=== PATIENT | female | born 1985 | race Caucasian/White ===

== ENCOUNTER 2017-05-18 18:04 | Emergency (ER) | payer MEDICAID ==
--- NOTE | 2017-05-18 18:06 | ED Physician Chart ---
Chief Complaint/HPI - Patient Information Date Seen:: 05/18/17 Time Seen:: 18:06 Chief Complaint:: pain History of Present Illness:: 31-year-old female complains of acute on chronic, intermittent, moderate, worse with walking, nonradiating, left lateral ankle pain 2 years. Has associated on and off swelling of the left lateral ankle. Also reports some associated numbness to the left foot. Denies chest pain, palpitations, nausea, vomiting, abdominal pain, headache, acute vision changes. Historian:: Patient Review:: Nurse's Note Reviewed Review of Systems - Review of Systems Other: Complete system review otherwise unremarkable except as noted in history of present illness. Past Medical History - Past Medical History Past Medical History: No significant medical hx Family History: None Social History: Non Smoker, No Alcohol, No Drug Use, Other Surgical History: None Psychiatricy History: None Medication: None Family Medical History - Family Member Father Ethnicity: Non- Living Status: Still Living Hx Family Cancer: No Hx Family Coronary Artery Disease: No Hx Family Congestive Heart Failure: No Hx Family Hypertension: No Hx Family Stroke: No Hx Family Diabetes: No Hx Family Seizures: No Hx Family Dementia: No Hx Family AIDS: No Hx Family HIV: No Hx Family COPD: No Hx Family Hepatitis: No Hx Family Psychiatric Problems: No Hx Family Tuberculosis: No Other Medical History: Crohn's Disease Physical Exam - Physical Examination Other:: INITIAL VITAL SIGNS: Reviewed by me GENERAL: Alert and interactive. No acute distress HEAD: Head is normocephalic and atraumatic EYES: EOMI. PERRL. No scleral icterus. No conjunctival injection ENT: Moist mucous membranes. NECK: Supple. No masses. Full range of motion RESPIRATORY: No tachypnea. Clear breath sounds bilaterally. No wheezing, rales, or rhonchi CV: Regular rate and rhythm. No murmurs, rubs, or gallops ABDOMEN: Soft, non-distended, non-tender. No guarding. No rebound. No masses. EXTREMITIES: No deformity. No cyanosis. Left lateral ankle has some edema. There is tenderness to palpation. SKIN: Warm and dry. No obvious rashes. NEUROLOGIC: Alert and oriented. Face is symmetric. Speech is normal. Moves all extremities equally. Motor and sensory distally intact. Labs/Radiology/EKG Results - Lab Results Results: Lab Results 05/18/17 Range/Units 18:45 WBC 6.5 (4.8-10.8) Th/cmm RBC 4.39 (3.80-5.10) Mil/cmm Hgb 13.5 (11.7-15.5) gm/dL Hct 39.6 (35.0-45.0) % MCV 90.2 (81-100) fl MCH 30.8 (27.0-31.0) pg MCHC Differential 34.1 (28.0-36.0) pg RDW 12.6 (11.5-20.0) % Plt Count 234 (150-400) Th/cmm MPV 8.5 fl Neutrophils % 55.1 (40.0-80.0) % Lymphocytes % 35.8 (20.0-50.0) % Monocytes % 7.0 (2.0-10.0) % Eosinophils % 1.9 (0.0-5.0) % Basophils % 0.2 (0.0-2.0) % - Radiology Results Results: X-ray left Ankle 3V Interpreted by me: Bones: No fracture Joints: No dislocation Foreign Body: None Assessment Splint Care: Splint applied Post Procedure/Splint Exam: No Active Bleeding, Full Range of Motion, Neuro/ Vascular Exam Comments:: AirGel splint applied to left ankle by me Splint Assessment: Neurovascularly intact post splint placement with good fit. ED Septic Shock - . Is Septic Shock (SBP<90, OR Lactate>4 mmol\\L) present?: No Reassessment (Disposition) - Reassessment Reassessment:: Patient presents with 2 years of on and off ankle pain. There is no acute findings today in the ER. Didn't to ERs in the past several weeks. She says that her primary care doctor is "too far" for her to go to see. Consequently she has not followed up with the primary care physician. She says that she has never had any findings in the emergency department. All labs are unremarkable today. I discussed all findings with the patient in detail. X-rays unremarkable. Applied air gel splint patient fell comfort. Patient given ibuprofen prescription. Recommended that she follow-up with a primary care physician for further workup and treatment. Blood pressure was noted to be elevated over 120/80. There were no signs of hypertension. Discussed the findings with the patient and recommended that the patient follow up with the primary care physician regarding the elevated blood pressure. Reassessment Condition:: Improved - Diagnosis Diagnosis:: Acute on chronic left ankle pain due to possible left ankle tendinitis Elevated blood pressure without the diagnosis of hypertension - Aftercare/Follow up Instructions Aftercare/Follow-Up Instructions:: Counseled pt regarding lab results/diagnosis & need follow up, Refer to Discharge Instructions Medication Prescribed:: Ibuprofen - Patient Disposition Discharge/Transfer:: Home Time:: 19:44 Condition at Disposition:: Improved ED Discharge Plan - Patient Disposition Admit/Discharge/Transfer: PT DISCHARGED HOME Condition at Disposition: Improved Instructions: Tendinitis
[2017-05-18 18:52] LABS: % BASOPHILS 0.2 % (0.0-2.0); % EOSINOPHILS 1.9 % (0.0-5.0); % LYMPHOCYTES 35.8 % (20.0-50.0); % NEUTROPHILS 55.1 % (40.0-80.0); HEMATOCRIT 39.6 % (35.0-45.0); HEMOGLOBIN 13.5 gm/dL (11.7-15.5); MEAN CELL VOLUME 90.2 fl (81-100); MEAN CORPUSCULAR HEMOGLOBIN 30.8 pg (27.0-31.0); MEAN CORPUSCULAR HGB CONC 34.1 pg (28.0-36.0); MEAN PLATELET VOLUME 8.5 fl; NEUTROPHILE ABSOLUTE 3.6 Th/cmm (1.8-8.0); PLATELET COUNT 234 Th/cmm (150-400); RED BLOOD COUNT 4.39 Mil/cmm (3.80-5.10); RED CELL DISTRIBUTION WIDTH 12.6 % (11.5-20.0); WHITE BLOOD COUNT 6.5 Th/cmm (4.8-10.8)
[2017-05-18 19:10] LABS: ALB/GLOB RATIO 1.5 (1.0-1.8); ALKALINE PHOSPHATASE 46 U/L (34-104); ANION GAP 2.1 (7.0-16.0); BILIRUBIN,TOTAL 0.6 mg/dL (0.3-1.0); BUN - UREA NITROGEN 14 mg/dL (7-25); BUN/CREATININE RATIO 15.6; CALCIUM SERUM 9.8 mg/dL (8.6-10.3); CARBON DIOXIDE 30.5 mEq/L (21.0-31.0); CHLORIDE 104 mEq/L (98-107); CREATININE - SERUM 0.9 mg/dL (0.6-1.2); GLUCOSE 80 mg/dL (70-105); POTASSIUM SERUM 3.6 mEq/L (3.5-5.1); SGOT 31 U/L (13-39); SGPT/ALT 28 U/L (7-52); SODIUM SERUM 133 mEq/L (136-145)
--- NOTE | 2017-05-19 10:35 | Diagnostic Imaging Report ---
Left ankle 3 views Indication: Trauma Comparison: none Findings: Exam is limited due to overlying external material. No evidence of acute fracture or dislocation. Limited assessment of the soft tissues demonstrates mild soft tissue swelling of the ankle. Minimal distal Achilles spurring is noted. Impression: No evidence of an acute fracture. Mild soft tissue swelling of the ankle. In the setting of trauma, if clinical symptoms persist and there is continued concern for an occult fracture, follow up exams in 5-7 days is suggested.
== END 2017-05-18 20:08 | disposition home or self-care (01) ==
LOC: ER 18:04
DX: G89.29 Other chronic pain (principal); M25.572 Pain in left ankle and joints of left foot; R03.0 Elevated blood-pressure reading, without diagnosis of hypertension; R20.0 Anesthesia of skin
CPT/HCPCS: 36415-UA; 73610-TC; 80053-TC; 85025-TC; 85379-TC

== ENCOUNTER 2018-06-30 18:51 | Emergency (ER) | payer MEDICAID ==
--- NOTE | 2018-06-30 19:58 | ED Physician Chart ---
ED Chief Complaint/HPI - Patient Information Date Seen:: 06/30/18 Time Seen:: 19:03 Chief Complaint:: right groin pain History of Present Illness:: right groin pain that she has had for a year. felt that it was important to come in today because the pain was different. states that her right groin goes into spasm occasionally and that it did so today. has been on pain meds in the past. sees a chiropractor for her back even though she has hardware present throughout her spine. Allergies:: Allergies Allergy/AdvReac Type Severity Reaction Status Date / Time No Known Allergies Allergy Verified 05/18/17 18:37 Vitals:: Vital Signs - 8 hr 06/30/18 19:03 Temp 99.2 F HR 92 RR 16 BP 128/74 O2 Sat % 98 ED Review of Systems - Review of Systems General/Constitutional: No fever, No chills, No weight loss, No weakness, No diaphoresis, No edema, No loss of appetite Skin: No skin lesions, No rash, No bruising Head: No headache, No light-headedness Eyes: No loss of vision, No pain, No diplopia ENT: No earache, No nasal drainage, No sore throat, No tinnitus Neck: No neck pain, No swelling, No thyromegaly, No stiffness, No mass noted Cardio Vascular: No chest pain, No palpitations, No PND, No orthopnea, No edema Pulmonary: No SOB, No cough, No sputum, No wheezing GI: No nausea, No vomiting, No diarrhea, No pain, No melena, No hematochezia, No constipation, No hematemesis, Other (R inguinal pain) G/U: No dysuria, No frequency, No hematuria Musculoskeletal: Other (right inguinal pain; prior scoliosis surgery with galarza rods) Endocrine: No polyuria, No polydipsia Psychiatric: No prior psych history, No depression, No anxiety, No suicidal ideation Hematopoietic: No bruising, No lymphadenopathy Allergic/Immuno: No urticaria, No angioedema Neurological: Syncope Family Medical History - Family Member Father Ethnicity: Non- Living Status: Still Living Hx Family Cancer: No Hx Family Coronary Artery Disease: No Hx Family Congestive Heart Failure: No Hx Family Hypertension: No Hx Family Stroke: No Hx Family Diabetes: No Hx Family Seizures: No Hx Family Dementia: No Hx Family AIDS: No Hx Family HIV: No Hx Family COPD: No Hx Family Hepatitis: No Hx Family Psychiatric Problems: No Hx Family Tuberculosis: No ED Physical Exam - Physical Examination General/Constitutional: Awake, Well-developed, well-nourished, Alert, No distress, GCS 15, Non-toxic appearing, Ambulatory Other Gen/Cons comments:: thin and chronically ill appearing. Head: Atraumatic Eyes: Lids, conjuctiva normal, PERRL, EOMI Skin: Nl inspection, No rash, No skin lesions, No ecchymosis, Well hydrated, No lymphadenopathy Other Skin comments:: very long spinal scar from previous spinal surgery. ENMT: External ears, nose nl, Nasal exam nl, Lips, teeth, gums nl Neck: Nontender, Full ROM w/o pain, No JVD, No nuchal rigidity, No bruit, No mass, No stridor Respiratory: Nl effort/Exclusion, Clear to Auscultation, No Wheeze/Rhonchi/Rales Cardio Vascular: RRR, No murmur, gallop, rubs, NL S1 S2 Other GI comments:: R inguinal area without any hernia at all. No palpable lymph nodes. Extremities: No tenderness or effusion, Full ROM, normal strength in all extremities, No edema, Normal digits & nails Other Extremities comments:: no pain in right hip with right hip movement. no pain with walking. no waddling gait. Neuro/Psych: Alert/oriented, Normal motor strength, Judgement/insight normal, Normal gait, No focal deficits Other Neuro/Psych comments:: mood highly abnormal. when I suggested that we check blood work on her, she put her hands to her hair. Other Misc comments:: very long spinal scar. R parathoracic and paralumbar muscle area is very prominent---consistent with scoliosis. ED Septic Shock - . Is Septic Shock (SBP<90, OR Lactate>4 mmol\L) present?: No - <6hrs of presentation: Vital Signs: Vital Signs - 8 hr 06/30/18 19:03 Temp 99.2 F HR 92 RR 16 BP 128/74 O2 Sat % 98 ED Reassessment (Disposition) - Reassessment Reassessment Condition:: Unchanged - Diagnosis Diagnosis:: Right inguinal pain that she has had on and off for a year. - Patient Disposition Discharge/Transfer:: Against Medical Advice Condition at Disposition:: Unchanged
== END 2018-06-30 19:50 | disposition left against medical advice (07) ==
LOC: ER 18:51
DX: R10.31 Right lower quadrant pain (principal); Z98.890 Other specified postprocedural states
CPT/HCPCS: Z7502